=== PATIENT | female | born 1955 | race Caucasian/White ===

== ENCOUNTER → 2016-11-19 | Outpatient (CLI) | payer BC ==
[2014-05-12 17:22] VITALS: BP 178/86
--- NOTE | 2016-11-20 10:27 | RAD ---
DATE: 11/19/2016 EXAM: MAMMO PAYTON SCREENING BILATERAL HISTORY: Routine screening COMPARISON: 11/19/2015 The breast parenchyma shows scattered fibroglandular densities. Breast parenchyma level B. FINDINGS: 2-D and 3-D tomosynthesis imaging was performed in CC and MLO projections. No new or enlarging breast densities are seen. Numerous benign type calcifications are present in both breasts. No suspicious microcalcifications have developed. IMPRESSION: Stable mammograms without evidence of malignancy. BI-RADS CATEGORY: 2 BENIGN FINDING(S) RECOMMENDED FOLLOW-UP: 12M 12 MONTH FOLLOW-UP PQRS compliance statement: Patient information was entered into a reminder system with a target due date for the next mammogram. Mammography is a sensitive method for finding small breast cancers, but it does not detect them all and is not a substitute for careful clinical examination. A negative mammogram does not negate a clinically suspicious finding and should not result in delay in biopsying a clinically suspicious abnormality. "Our facility is accredited by the [employer] Mammography [employer]."
== END | disposition home or self-care (01) ==
LOC: KCIC MAMMO 10:41
PROVIDERS: ATTEND Obstetrics & Gynecology
DX: Z12.31 Encounter for screening mammogram for malignant neoplasm of breast (principal)
CPT/HCPCS: 77063; G0202; 77067

== ENCOUNTER → 2017-10-30 | Outpatient (CLI) | payer BC | END | disposition home or self-care (01) | LOC: KCIC 10:23 | DX: M47.896 Other spondylosis, lumbar region (principal); M12.88 Other specific arthropathies, not elsewhere classified, other specified site; I10 Essential (primary) hypertension; E03.9 Hypothyroidism, unspecified | CPT/HCPCS: 72100 ==

== ENCOUNTER → 2017-11-20 | Outpatient (CLI) | payer BC ==
[2014-05-12 17:22] VITALS: BP 178/86
--- NOTE | 2017-11-20 13:53 | KCIC ---
Bilateral digital screening mammograms with 3-D tomosynthesis: Reason for examination: Routine screening. Comparison is made to previous studies dated back to 01/26/2014. Bilateral mammograms in CC and oblique projections were obtained with 2-D imaging and 3-D tomosynthesis imaging on a Siemens Inspiration unit and reviewed on the workstation. Interpretation was made with the benefit of CAD. The skin and nipples show no abnormalities. No abnormal axillary lymph nodes are seen. The breast parenchyma shows scattered fatty and fibroglandular density. (Breast density: Category B.) There are no dominant masses, suspicious calcifications or architectural distortion. Benign calcifications are present. Impression: No evidence of malignancy. Recommend routine screening. BI-RAD Category 2: Benign. "Our facility is accredited by the [employer] Mammography Program." This patient's information has been entered into a reminder system for the patient to be notified with the results of her examination and a target date for the next mammogram. Electronically signed by: Estefania Morales MD (11/20/2017 1:50 PM) [id number]
== END | disposition home or self-care (01) ==
LOC: KCIC MAMMO 09:20
PROVIDERS: ATTEND Family Medicine
DX: Z12.31 Encounter for screening mammogram for malignant neoplasm of breast (principal); I10 Essential (primary) hypertension; E03.9 Hypothyroidism, unspecified
CPT/HCPCS: 77063; 77067

== ENCOUNTER → 2017-12-23 | Outpatient (CLI) | payer BC ==
[2014-05-12 17:22] VITALS: BP 178/86
--- NOTE | 2017-12-23 10:42 | KCIC ---
MRI of the lumbar spine without contrast 12/23/2017 CLINICAL HISTORY: Chronic low back pain worsening since September of this year. TECHNIQUE: Unenhanced T1-weighted and T2-weighted sagittal and axial and inversion recovery sagittal images of the lumbar spine were obtained. FINDINGS: Comparison is made to radiographs of the lumbar spine dated 10/30/2017. Very mild S-shaped curvature of the thoracolumbar spine is seen. Degenerative signal changes are seen involving the L2-3, L3-4, L4-5 and L5-S1 discs. Degenerative signal changes are seen within the marrow surrounding these discs. Loss of height of the L2-3, L3-4 and L5-S1 discs is noted. The conus medullaris is normal morphology, position, and signal characteristics. At the L1-2 disc space there is a minimal generalized disc bulge. Degenerative changes are seen involving the facet joints bilaterally. There is mild ligamentum flavum hypertrophy bilaterally. These findings do not result in significant central spinal canal or neural foraminal stenosis. At the L2-3 disc space there is a mild to moderate generalized disc bulge. This is eccentric to the left. Degenerative changes are seen involving the facet joints bilaterally. There is moderate ligamentum flavum hypertrophy bilaterally. There is prominence of the posterior epidural fat. These findings when combined result in moderate central spinal canal stenosis. Mild bilateral neural foraminal stenosis is seen. At the L3-4 disc space there is a mild to moderate generalized disc bulge. This is eccentric to the right. Degenerative changes are seen involving the facet joints bilaterally. There is moderate ligamentum flavum hypertrophy bilaterally. There is prominence of the posterior epidural fat. These findings when combined result in mild to moderate central spinal canal stenosis. Mild bilateral neural foraminal stenosis is seen. At the L4-5 disc space there is a moderate generalized disc bulge. Degenerative changes are seen involving the facet joints, bilaterally. There is moderate ligamentum flavum hypertrophy bilaterally. These findings when combined result in moderate central spinal canal stenosis. Mild bilateral neural foraminal stenosis is seen. At the L5-S1 disc space there is a mild to moderate generalized disc bulge. Degenerative changes are seen involving the facet joints, left greater than right. The disc bulge is eccentric to the left. These findings when combined do not result in significant central spinal canal stenosis. Mild left neural foraminal stenosis is seen. The right neural foramen is patent. IMPRESSION: The changes of degenerative disc disease are seen throughout the lumbar spine. These findings result in moderate central spinal canal stenosis at L2-3, mild to moderate central spinal canal stenosis at L3-4 and moderate central spinal canal stenosis at L4-5. Mild bilateral neural foraminal stenosis is seen at L2-3, L3-4 and L4-5. Mild left neural foraminal stenosis is seen at L5-S1. Electronically signed by: Louis Elise MD (12/23/2017 10:38 AM) [facility]
== END | disposition home or self-care (01) ==
LOC: KCIC MRI 08:34
PROVIDERS: ATTEND Nurse Practitioner Family
DX: M51.36 Other intervertebral disc degeneration, lumbar region (principal); M48.061 Spinal stenosis, lumbar region without neurogenic claudication; M48.07 Spinal stenosis, lumbosacral region
CPT/HCPCS: 72148

== ENCOUNTER → 2018-01-15 | Outpatient (CLI) | payer BC ==
[2014-05-12 17:22] VITALS: BP 178/86
[~2018-01-15] MED LIST: BACL10TA PO; DOXY100C14 PO; HYDR-2758 PO; HYDR25TA9 PO; IOHEXOL 180 MG/ML 10 ML VIAL. ONE; LIDOCAINE 1% PF 2 ML VIAL. ONE; LOSA100T7 PO; METH5TAB6 PO; METO-269 PO; MONT10TA9 PO; OLOP5DRO EACHEYE; RANI300T3 PO; methylPREDNISolone ACETATE 40 MG/ML VIAL. ONE; methylPREDNISolone ACETATE 80 MG/ML VIAL. ONE
--- NOTE | 2018-01-16 02:06 | PAIN ---
DATE OF SERVICE: 01/15/2018 INITIAL CONSULTATION FOR PAIN CLINIC CHIEF COMPLAINT: Low back and bilateral lower extremity pain. HISTORY OF PRESENT ILLNESS: This is a 62-year-old female who presents with acute pain in the low back and bilateral lower extremities, mostly in the posterior gluteus, posterior thighs radiating to posterior knees and calves, slightly worse on the right than the left but present bilaterally for about 4 months. The patient has had pain on and off for many years she reports but over the past 4 months, the pain has been getting worse. She has done physical therapy and chiropractic treatment, which is ongoing but neither of these have been decreasing the pain like had in the past. The patient reports it is intermittent in intensity but worse with walking and standing, changing positions; better with sitting or lying down but does awaken her from sleep occasionally. The patient reports it does not affect her bowel or bladder control but does affect her ability to walk. She is not using any assistive device to ambulate and has significant fatigability, especially in the right leg but in both legs when the pain is at its worst. The patient reports this happened after about 10-15 minutes of walking or standing still. The patient was taking hydrocodone, which does help to a moderate extent but only about 50%. Again, the patient underwent chiropractic currently as well as some recent physical therapy without significant improvement. The patient reports no loss of motor function but significant pain; describes aching, stabbing, throbbing, sometimes shooting and tingling mostly the lateral and posterior aspect of the lower extremities. The patient reports a disability rate from 0-10, 10 being the worst, is a 6-7 with family and home responsibilities, 2 with recreation and social activity, 3-4 with occupation, 0 with sexual behavior, self care or life support activities. The patient did have an MRI scan of the lumbar spine, which is showing multilevel degenerative disk disease throughout the lumbar spine with moderate central spinal canal stenosis at L2-L3; moderate central spinal stenosis at L3-L4; moderate central spinal canal stenosis at L4-L5; mild bilateral neural foraminal stenosis at L2-L3, L3-L4 and L4-L5 with mild left neural foraminal stenosis at L5-S1. PAST MEDICAL HISTORY: Significant for hearing loss, dizziness, arthritis, hypertension and hyperthyroidism. PAST SURGICAL HISTORY: Previous surgeries include bilateral knee replacements, cholecystectomy and exploratory knee surgery in the year 1999. CURRENT MEDICATIONS: Include doxycycline, hydrocodone, Toprol, Zantac, methimazole, Patanol, hydrochlorothiazide, losartan, baclofen, montelukast, Zantac and Toprol. FAMILY HISTORY: Significant for diabetes and heart disease. SOCIAL HISTORY: The patient does not smoke; drinks alcohol very rarely; is not using any illegal, illicit or recreational drugs. 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 REVIEW OF SYSTEMS: The patient's review of systems is positive for those items mentioned in history of present illness. All systems reviewed and otherwise negative. It is complete, full and well documented on the patient's chart. PHYSICAL EXAMINATION: VITAL SIGNS: Today, her blood pressure is 126/70, pulse is 63, respirations 18 and temperature 98.2 degrees Fahrenheit. Height is 5 feet 4 inches and weight is 238 pounds. GENERAL: The patient is awake, alert, oriented, appropriate and very pleasant demeanor. HEENT: Head shows normocephalic and atraumatic. Extraocular movements are intact and symmetrical. Oral cavity: Mucous membranes moist and pink. Dentition is intact. NECK: Shows anterior throat supple without palpable lymphadenopathy noted. Swallow reflex is symmetrical. CHEST: Shows normal with inspection. Breath sounds clear to auscultation bilaterally. HEART: Shows S1 and S2 clear. No murmurs auscultated. ABDOMEN: Obese, soft, nontender and nondistended. No palpable organomegaly is noted. No rebound or guarding demonstrated. BACK: Shows spine grossly in the midline. Slight exaggeration of the thoracic kyphosis and some minor flattening of the lumbar lordotic curvature. Lumbar paraspinous muscle shows symmetrical on inspection and palpation shows some mild tenderness in the low lumbar distribution only and only diffusely without radiation and without trigger points. No tenderness over the sacrum or sacroiliac regions. The patient has good rotational motion of the lumbar spine, both laterally as well as extension and flexion without significant difficulty. EXTREMITIES: The patient's lower extremity show deep tendon reflexes at 1+ in the patellar and tendo-calcaneus tendons are equal. Motor exam is strong with 5/5 dorsiflexion, extension, quadriceps and hamstring flexion. Peripheral pulses are 1+ posterior tibia. No peripheral edema is noted. No clubbing or cyanosis. Lower extremities are warm and dry to touch, equal in color and appearance. The patient's straight leg raise noted to be negative for reproduction of radicular symptoms bilaterally. Gaenslen's and Ernesto's maneuvers are negative bilaterally as well. The patient is able to stand, stand on her toes without difficulty or loss of balance, walks with a normal-appearing gait for short distance in the office without any assistive devices. The patient's skin shows warm and dry, good turgor. No edema. No sores or bruising. IMPRESSION: 1. This is a 62-year-old female with approximate 4-month history of increasing pain, lower extremities and low back in a radicular fashion is noted. 2. MRI scan as noted. 3. Obesity. 4. Hypertension. 5. Arthritis. PLAN: Options were discussed with the patient including conservative medical management, physical therapies continued and interventional techniques. She would like to pursue interventional techniques as she is currently undergoing physical therapy without significant improvement. We discussed a lumbar epidural steroid injection using description as well as anatomical models to describe the procedure. Risks were again discussed including, but not limited to bleeding, infection, possibility of epidural hematoma, subsequent neurological compromise, dural puncture headache, spinal cord and/or nerve damage, side effects of steroid medication and poor results regarding pain control. The patient understands and wished to proceed. The patient will return to the clinic in approximately 2 weeks for followup, was counseled as to return appointment, activity level and side effects to be aware of. DIAGNOSES: Lumbar radiculopathy with lumbar degenerative disk disease and lumbar spinal stenosis. PROCEDURE: Lumbar epidural steroid injection, translaminar approach at L4-L5 level using C-arm fluoroscopic guidance under sterile prep and drape using local anesthetic. MEDICATION INJECTED: A total of 120 mg Depo-Medrol plus 10 mL of preservative-free normal saline and 2 mL of Isovue for contrast. CONDITION AT DISCHARGE: Stable. The patient tolerated the procedure well and had no complications. ARACELY HOLM MD DR: SOTO/emile JOB#: [id number] / [id number] DAVID Marshall MD
== END | disposition home or self-care (01) ==
LOC: PNCL 09:27
PROVIDERS: ATTEND Anesthesiology
DX: M51.16 Intervertebral disc disorders with radiculopathy, lumbar region (principal); I10 Essential (primary) hypertension; M19.90 Unspecified osteoarthritis, unspecified site; E66.9 Obesity, unspecified; M48.07 Spinal stenosis, lumbosacral region; Z79.899 Other long term (current) drug therapy; Z98.890 Other specified postprocedural states
CPT/HCPCS: 62323; J1030; J1040; Q9965

== ENCOUNTER → 2018-02-04 | Outpatient (CLI) | payer BC ==
[2014-05-12 17:22] VITALS: BP 178/86
[~2018-02-04] MED LIST changes: -LIDOCAINE 1% PF 2 ML VIAL. ONE
--- NOTE | 2018-02-04 20:58 | PAIN ---
DATE OF SERVICE: 02/04/2018 PROGRESS NOTE FOR PAIN CLINIC DIAGNOSES: Lumbar radiculopathy with lumbar degenerative disk disease and lumbar spinal stenosis. HISTORY OF PRESENT ILLNESS: The patient is a 62-year-old female who returns for followup status post lumbar epidural steroid injection x 1. The patient reports about 80% improvement until the last 2 days or so and the pain is beginning to return in the low back, bilateral lower extremities, mostly in posterior gluteus, posterior thighs and across the low back. The patient reports otherwise she has been doing very well as increasing her activity with greater distance walking, able to return to household activities with greater ease and sleeping better. The patient reports it does not awaken her from sleep any further like it was previously. The patient reports the pain is a 3 on a scale of 10 at its worst, 2 on average, 1 at its least and is a 2 today. The patient reports it is aching, sharp, dull and some combination of these in the low back and legs and gluteus as well. The patient reports some hot flashes since her last injection, but no new motor or sensory deficits and no new bowel or bladder incontinence or other complaints. PHYSICAL EXAMINATION: VITAL SIGNS: The patient's blood pressure 124/42, pulse 60, respirations 16 and temperature 97.9 degrees Fahrenheit. Weight is 242 pounds. GENERAL: The patient is awake, alert, oriented, appropriate and very pleasant demeanor. HEENT: Head shows normocephalic and atraumatic. Extraocular muscles are intact and symmetrical. Oral cavity: Mucous membranes moist and pink. Dentition is intact. NECK: Shows anterior throat supple without palpable lymphadenopathy noted. Swallow reflex symmetrical. CHEST: Shows normal with inspection. Breath sounds clear to auscultation bilaterally. HEART: Shows S1 and S2 clear. No murmurs auscultated. ABDOMEN: Soft, nontender and nondistended. No palpable organomegaly is noted. No rebound or guarding demonstrated. BACK: Shows spine grossly in the midline, slight exaggerated thoracic kyphosis and some minor flattening of the lumbar lordotic curvature. Lumbar paraspinous muscle shows symmetrical on inspection, on palpation shows some moderate tenderness but only diffusely in the middle and lower distribution of the paraspinous muscles bilaterally without radiation, without atrophy, hypertrophy or trigger points. No radiation of pain. No difficulty with rotation both laterally as well as extension and flexion. EXTREMITIES: Lower extremities show deep tendon reflexes at 1+/4 in the patellar and tendo-calcaneus tendons. Motor exam is strong with 5/5 dorsiflexion, extension, quadriceps and hamstring flexion and symmetrical. Peripheral pulses are 1+ posterior tibial. No peripheral edema is noted bilaterally. Options were discussed with the patient. The patient's old chart was reviewed as well as her current medication regimen updated. Current review of systems updated today as well. We will proceed with a second lumbar epidural steroid injection today with fluoroscopic guidance. Risks were again discussed including, but not limited to bleeding, infection, possibility of epidural hematoma, subsequent neurological compromise, dural puncture, headaches, spinal cord and/or nerve damage, side effects of steroid medication and poor results regarding pain control. The patient understands and wished to proceed. The patient will return to the clinic in approximately 2 weeks for followup, was counseled as to return appointment, activity level and side effects to be aware of. DIAGNOSES: Lumbar radiculopathy with lumbar degenerative disk disease and lumbar spinal stenosis. PROCEDURE: Lumbar epidural steroid injection, translaminar approach at the L4-L5 level using C-arm fluoroscopic guidance under sterile prep and drape using local anesthetic. MEDICATION INJECTED: A total of 120 mg Depo-Medrol plus 10 mL of preservative-free normal saline and 2 mL of Isovue for contrast. CONDITION AT DISCHARGE: Stable. The patient tolerated the procedure well and had no complications. ARACELY HOLM MD DR: SOTO/emile JOB#: [id number] / [id number]
== END | disposition home or self-care (01) ==
LOC: PNCL 13:55
PROVIDERS: ATTEND Anesthesiology
DX: M51.16 Intervertebral disc disorders with radiculopathy, lumbar region (principal); M48.061 Spinal stenosis, lumbar region without neurogenic claudication; Z88.1 Allergy status to other antibiotic agents; Z88.8 Allergy status to other drugs, medicaments and biological substances
CPT/HCPCS: 62323; J1030; J1040; Q9965

== ENCOUNTER → 2018-02-23 | Outpatient (CLI) | payer BC ==
[2014-05-12 17:22] VITALS: BP 178/86
[~2018-02-23] MED LIST changes: +HYDR-2145 PO; -HYDR-2758 PO; +HYDR-2761 PO; -HYDR25TA9 PO
--- NOTE | 2018-02-23 19:28 | PAIN ---
DATE OF SERVICE: 02/23/2018 PROGRESS NOTE FOR PAIN CLINIC DIAGNOSES: 1. Lumbar radiculopathy with lumbar degenerative disk disease. 2. Lumbar spinal stenosis. HISTORY OF PRESENT ILLNESS: The patient is a 62-year-old female who returns for followup status post lumbar epidural steroid injection x 2. The patient returns reporting good improvement after the first injection, about 80%, but the second injection was about the same. The patient reports no significant improvement above that; still pain in the low back, bilateral lower extremities, mostly in the posterior gluteus, posterior thigh, lateral thighs, anterior thighs, medial lower legs and is constant. The patient reports it can be severe, unbearable at times, mostly with walking, standing, changing positions; better with sitting or lying down; does not awaken her from sleep. Reports it is 4 on a scale of 10 as worse, 2 on average, 1 at its least and is a 2 today. The patient reports no new motor or sensory deficits, no new bowel or bladder incontinence or other complaints. The patient describes the pain as aching and dull across the low back, shooting and more sharp and severe in the leg. PHYSICAL EXAMINATION: VITAL SIGNS: The patient's blood pressure is 123/74, pulse 70, respirations 18, temperature is 97.4 degrees Fahrenheit, weight is 240 pounds. GENERAL: The patient is awake, alert, oriented, appropriate, very pleasant demeanor. HEENT: Head is normocephalic, atraumatic. Extraocular movements are intact and symmetrical. Oral cavity: Mucous membranes moist and pink. Dentition is intact. NECK: Shows anterior throat supple without palpable lymphadenopathy noted. Swallow reflex symmetrical. CHEST: Shows normal on inspection. Breath sounds clear to auscultation bilaterally. HEART: Shows S1, S2 clear. No murmurs auscultated. ABDOMEN: Soft, nontender, nondistended. No palpable organomegaly is noted. BACK: Shows spine grossly in the midline. Normal-appearing thoracic kyphosis, lumbar lordotic curvature. Lumbar paraspinous muscle shows symmetrical on inspection; on palpation, it shows some moderate tenderness, but only diffusely without significant radiation. EXTREMITIES: The patient's lower extremities show deep tendon reflexes 1+ in the patellar and tendo calcaneus tendons are equal. Motor exam is strong with 5/5 dorsiflexion, extension and symmetrical. Peripheral pulses are 1+ posterior tibia. No peripheral edema is noted, though other abnormalities. Options were discussed with the patient. The patient's old chart was reviewed as well as her current medication regimen updated. Current review of systems updated today as well. We will proceed with a third in the series of lumbar epidural steroid injection today with fluoroscopic guidance. Risks were again discussed including, but not limited to bleeding, infection, possibility of epidural hematoma and subsequent neurologic compromise, dural puncture, headaches, spinal cord and/or nerve damage, side effects of steroid medication and poor results regarding pain control. The patient understands and wished to proceed. She will return to clinic in approximately 2 weeks for followup, was counseled on return appointment, activity level and side effects to be aware of. DIAGNOSES: 1. Lumbar radiculopathy with lumbar spinal stenosis. 2. Lumbar degenerative disk disease. PROCEDURE: Lumbar epidural steroid injection, translaminar approach at the L4-L5 level using C-arm fluoroscopic guidance under sterile prep and drape using local anesthetic. MEDICATION INJECTED: A total of 120 mg Depo-Medrol plus 10 mL of preservative-free normal saline and 2 mL of Isovue for contrast. CONDITION AT DISCHARGE: Stable. The patient tolerated the procedure well, had no complications. ARACELY HOLM MD DR: SOTO/nts JOB#: [id number] / [id number]
== END | disposition home or self-care (01) ==
LOC: PNCL 13:51
PROVIDERS: ATTEND Anesthesiology
DX: M51.16 Intervertebral disc disorders with radiculopathy, lumbar region (principal); M48.061 Spinal stenosis, lumbar region without neurogenic claudication; Z88.1 Allergy status to other antibiotic agents; Z88.8 Allergy status to other drugs, medicaments and biological substances
CPT/HCPCS: 62323; J1030; J1040; Q9965

== ENCOUNTER → 2019-01-25 | Outpatient (CLI) | payer BC ==
[2014-05-12 17:22] VITALS: BP 178/86
[~2019-01-25] MED LIST changes: +CYCL10TA2 PO; +LOSA100T14 PO; -LOSA100T7 PO; +MONT10TA49 PO; -MONT10TA9 PO; +TELM40TA PO
--- NOTE | 2019-01-25 21:15 | PAIN ---
DATE OF SERVICE: 01/25/2019 PROGRESS NOTE FOR PAIN CLINIC DIAGNOSES: Lumbar radiculopathy with lumbar degenerative disk disease and lumbar spinal stenosis. HISTORY OF PRESENT ILLNESS: The patient is a 63-year-old female who returns for followup status post lumbar epidural steroid injections x 3, last seen 01/2018. The patient did very well with the injections about a 50% improvement overall. Pain is returning over the past 2-3 months. She reports it is in the low back, into the bilateral lower extremities, slightly more on the right than the left, but present with walking, standing, changing positions. The patient describes the pain as sharp and tight, severe across the low back into the posterior gluteus, lateral thighs, lateral anterior thighs and medial thighs. The patient reports it is an 8 on a scale of 10 at its worst over the past week, 5 on average and a 2-3 at its least and is a 5 today. The patient reports no new motor or sensory deficits, no new bowel or bladder incontinence or other complaints. PHYSICAL EXAMINATION: VITAL SIGNS: The patient's blood pressure is 123/68, pulse 57, respirations 18, temperature 98.3 degrees Fahrenheit, height is 5 feet 4 inches, weight is 238 pounds. GENERAL: The patient is awake, alert, oriented, appropriate, very pleasant demeanor. HEENT: Head shows normocephalic, atraumatic. Extraocular movements are intact and symmetrical. Oral cavity: Mucous membranes moist and pink. Dentition is intact. NECK: Shows anterior throat supple without palpable lymphadenopathy noted. Swallow reflex symmetrical. CHEST: Shows normal on inspection. Breath sounds clear bilaterally. HEART: Shows S1, S2 clear. No murmurs auscultated. ABDOMEN: Soft, nontender, nondistended. No palpable organomegaly is noted. No rebound or guarding demonstrated. BACK: Shows spine grossly in the midline. Normal appearing thoracic kyphosis and lumbar lordotic curvature. Lumbar paraspinous muscle shows symmetrical on inspection, on palpation shows some moderate tenderness diffusely without significant radiation. EXTREMITIES: The patient's lower extremities show deep tendon reflexes are 1+ in the patellar and tendo calcaneus tendons are equal. Motor exam is strong with 5/5 dorsiflexion, extension, quadriceps and hamstring flexion. Peripheral pulses are 1+ posterior tibia. No peripheral edema is noted bilaterally. Options were discussed with the patient. The patient's old chart was reviewed as her current medication regimen updated. Current review of systems updated today as well. We will proceed with the first in the series of lumbar epidural steroid injection today with fluoroscopic guidance. Risks were again discussed including, but not limited to bleeding, infection, possibility of epidural hematoma, subsequent neurological compromise, dural puncture, headaches, spinal cord and/or nerve damage, side effects of steroid medication and poor results regarding pain control. The patient understands and wished to proceed. The patient will return to clinic in approximately 2 weeks for followup. She was counseled as to return appointment, activity level and side effects to be aware of. DIAGNOSIS: Lumbar radiculopathy with lumbar degenerative disk disease, lumbar spinal stenosis. PROCEDURE: Lumbar epidural steroid injection, translaminar approach at L4-L5 level using C-arm fluoroscopic guidance under sterile prep and drape using local anesthetic. MEDICATION INJECTED: A total of 120 mg Depo-Medrol plus 10 mL of preservative-free normal saline and 2 mL of contrast. CONDITION AT DISCHARGE: Stable. The patient tolerated procedure well, had no complications. ARACELY HOLM MD DR: SOTO/emile JOB#: [id number] / [id number]
== END ==
LOC: PNCL 14:29
PROVIDERS: ATTEND Anesthesiology
DX: M51.16 Intervertebral disc disorders with radiculopathy, lumbar region (principal); M48.061 Spinal stenosis, lumbar region without neurogenic claudication
CPT/HCPCS: 62323; J1030; J1040; Q9965

== ENCOUNTER → 2019-02-14 | Outpatient (CLI) | payer BC ==
[2014-05-12 17:22] VITALS: BP 178/86
--- NOTE | 2019-02-14 20:52 | PAIN ---
DATE OF SERVICE: 02/14/2019 PROGRESS NOTE FOR PAIN CLINIC DIAGNOSES: Lumbar radiculopathy with lumbar degenerative disk disease, lumbar spinal stenosis. HISTORY OF PRESENT ILLNESS: The patient is a 63-year-old female who returns for followup status post lumbar epidural steroid injection x 1. The patient reports about 30% improvement overall in the low back, bilateral lower extremities, still some pain in the posterior gluteus, lateral thighs, anterior thighs, posterior thighs and medial lower leg. The patient reports it is worse with walking, standing, changing positions, essentially right equal to left at this time. The patient describes the pain as a sharp pain in the back, tight in the back and there is some shooting pain in the lower extremities. The patient reports it is a 4-5 on a scale of 10 on average, 5 at its worse and a 3 at its least, and is a 3 today. The patient reports no new motor or sensory deficits. Initially, she was increasing her distance walking, doing work activities, household activities and increasing with some activities not others. The patient reports no new motor or sensory deficits, no new bowel or bladder incontinence or other complaints. PHYSICAL EXAMINATION: VITAL SIGNS: The patient's blood pressure is 121/50, pulse 57, respirations 18, temperature 98.0 degrees Fahrenheit, height is 5 feet 6 inches, weight is 240 pounds. GENERAL: The patient is awake, alert, oriented, appropriate, very pleasant demeanor. HEENT: Shows normocephalic, atraumatic. Extraocular movements are intact and symmetrical. Oral cavity: Mucous membranes moist and pink. Dentition is intact. NECK: Shows anterior throat supple without palpable lymphadenopathy noted. Swallow reflex symmetrical. CHEST: Shows normal on inspection. Breath sounds clear bilaterally. HEART: Shows S1, S2 clear. No murmurs are auscultated. ABDOMEN: Obese, soft, nontender, nondistended. No palpable organomegaly is noted. No rebound or guarding demonstrated. BACK: Shows spine grossly in the midline. Normal appearing thoracic kyphosis and minor flattening of lumbar lordotic curvature. Lumbar paraspinous muscle shows symmetrical on inspection, on palpation shows some moderate tenderness diffusely, but only diffusely bilaterally without significant radiation. The patient has good rotational motion of lumbar spine, both laterally as well as extension and flexion without difficulty. EXTREMITIES: The patient's lower extremities show deep tendon reflexes 1+ in the patellar and tendo calcaneus tendons. Motor exam is strong with 5/5 dorsiflexion, extension and equal bilaterally. Peripheral pulses are 1+. No peripheral edema is noted bilaterally. Options were discussed with the patient. The patient's old chart was reviewed as her current medication regimen updated. Current review of systems updated today as well. We will proceed with a second in the series of lumbar epidural steroid injection today with fluoroscopic guidance. Risks were again discussed including, but not limited to bleeding, infection, possibility of epidural hematoma, subsequent neurological compromise, dural puncture, headaches, spinal cord and/or nerve damage, side effects of steroid medication and poor results regarding pain control. The patient understands and wished to proceed. The patient will return to clinic in approximately 2 weeks for followup. She was counseled on return appointment, activity level and side effects to be aware of. DIAGNOSIS: Lumbar radiculopathy with lumbar degenerative disk disease, lumbar spinal stenosis. PROCEDURE: Lumbar epidural steroid injection, translaminar approach L4-L5 level using C-arm fluoroscopic guidance under sterile prep and drape using local anesthetic. MEDICATION INJECTED: A total of 120 mg Depo-Medrol plus 10 mL of preservative-free normal saline and 2 mL of contrast. CONDITION AT DISCHARGE: Stable. The patient tolerated the procedure well, had no complications. ARACELY HOLM MD DR: SOTO/emile JOB#: [id number] / [id number]
== END ==
LOC: PNCL 14:35
PROVIDERS: ATTEND Anesthesiology
DX: M51.16 Intervertebral disc disorders with radiculopathy, lumbar region (principal); M48.061 Spinal stenosis, lumbar region without neurogenic claudication
CPT/HCPCS: 62323; J1030; J1040; Q9965

== ENCOUNTER → 2019-03-17 | Outpatient (CLI) | payer BC ==
[2014-05-12 17:22] VITALS: BP 178/86
--- NOTE | 2019-03-17 23:05 | PAIN ---
DATE OF SERVICE: 03/17/2019 PROGRESS NOTE FOR PAIN CLINIC DIAGNOSES: Lumbar radiculopathy with lumbar degenerative disk disease and lumbar spinal stenosis. HISTORY OF PRESENT ILLNESS: The patient is a 64-year-old female, who returns for followup status post lumbar epidural steroid injections x 2, most recently 02/14/2019. The patient did very well with this about 50% improvement overall. Pain in the low back and bilateral lower extremities. The patient reports she has had increased stress at work recently, had been sitting for prolonged periods and greater difficulty with pain in her back, returning now over the past week or so. The patient reports the pain is across the low back, in the bilateral lower extremities, mostly in the posterior gluteus, posterolateral thighs, also lateral anterior thighs at times, but again mostly across the back. The patient reports it is sharp alternating with tight across the back and some shooting pain in the legs. The patient reports it is a 5 on a scale of 10 at its worst over the past week, anywhere from a 3-5 on average and a 2 at its least and is a 5 today. The patient reports no new motor or sensory deficits. No new bowel or bladder incontinence or other complaints. Sleeps well at night, does not awaken her from sleep. PHYSICAL EXAMINATION: VITAL SIGNS: The patient's blood pressure 132/78, pulse 90, respirations 18, temperature is 98.0 degrees Fahrenheit, height is 5 feet 4 inches, weight is 240 pounds. GENERAL: The patient is awake, alert, oriented, appropriate, very pleasant demeanor. HEENT: Shows normocephalic, atraumatic. Extraocular movements are intact and symmetrical. Oral cavity shows mucous membranes moist and pink. Dentition is intact. NECK: Shows anterior throat supple without palpable lymphadenopathy noted. Swallow reflex symmetrical. CHEST: Shows normal on inspection. Breath sounds are clear bilaterally. HEART: Shows S1, S2 clear. No murmurs auscultated. ABDOMEN: Soft, nontender, nondistended. No palpable organomegaly is noted. No rebound or guarding demonstrated. BACK: Shows spine grossly in the midline. Normal-appearing thoracic kyphosis and lumbar lordotic curvature. Lumbar paraspinous muscle shows symmetrical on inspection, on palpation shows some moderate tenderness diffusely bilaterally going diffusely without radiation. The patient has good rotational motion of lumbar spine, both laterally as well as extension and flexion without significant increase in pain. EXTREMITIES: Lower extremities show deep tendon reflexes at 1+ in the patellar and tendo-calcaneus tendons. Motor exam is 5/5 with dorsiflexion, extension, quadriceps and hamstring flexion equal. Peripheral pulses are 1+ posterior tibia. No peripheral edema bilaterally. Options were discussed with the patient. The patient's old chart was reviewed as her current medication regimen updated. Current review of systems updated today as well. We will proceed with a lumbar epidural steroid injection today, third in the series with fluoroscopic guidance. Risks were again discussed, including but not limited to bleeding, infection, possibility of epidural hematoma, subsequent neurological compromise, dural puncture, headaches, spinal cord and/or nerve damage, side effects of steroid medication and poor results regarding pain control. The patient understands and wished to proceed. The patient will return to clinic in approximately 2 weeks for followup. She was counseled on return appointment with activity level and side effects to be aware of. DIAGNOSES: Lumbar radiculopathy with lumbar degenerative disk disease and lumbar spinal stenosis. PROCEDURE: Lumbar epidural steroid injection, translaminar approach at L4-L5 level using C-arm fluoroscopic guidance under sterile prep and drape using local anesthetic. MEDICATION INJECTED: A total of 120 mg Depo-Medrol plus 10 mL of preservative-free normal saline and 2 mL of contrast. CONDITION AT DISCHARGE: Stable. The patient tolerated the procedure well, had no complications. ARACELY HOLM MD DR: SOTO/emile JOB#: [id number] / [id number]
== END ==
LOC: PNCL 14:35
PROVIDERS: ATTEND Anesthesiology
DX: M51.16 Intervertebral disc disorders with radiculopathy, lumbar region (principal); M48.061 Spinal stenosis, lumbar region without neurogenic claudication
CPT/HCPCS: 62323; J1030; J1040; Q9965

== ENCOUNTER → 2019-09-29 | Outpatient (CLI) | payer BC ==
[2014-05-12 17:22] VITALS: BP 178/86
[~2019-09-29] MED LIST changes: -IOHEXOL 180 MG/ML 10 ML VIAL. ONE; -methylPREDNISolone ACETATE 40 MG/ML VIAL. ONE; -methylPREDNISolone ACETATE 80 MG/ML VIAL. ONE
--- NOTE | 2019-09-29 18:47 | KCIC ---
Bilateral digital screening mammograms with 3-D tomosynthesis: Reason for examination: Routine screening. Comparison is made to previous studies dated 11/20/2017 at 11/19/2016. Bilateral mammograms in CC and oblique projections were obtained with 2-D imaging and 3-D tomosynthesis imaging on a Siemens Inspiration unit and reviewed on the workstation. Interpretation was made with the benefit of CAD. The skin and nipples show no abnormalities. No abnormal axillary lymph nodes are seen. The breast parenchyma shows scattered fatty and fibroglandular density. (Breast density: Category B.) There are no dominant masses, suspicious calcifications or architectural distortion. Benign calcifications are present. Impression: No evidence of malignancy. Recommend routine screening. BI-RAD Category 2: Benign. "Our facility is accredited by the [employer] Mammography Program." This patient's information has been entered into a reminder system for the patient to be notified with the results of her examination and a target date for the next mammogram. Electronically signed by: Estefania Morales MD (09/29/2019 6:44 PM) [id number]
== END | disposition home or self-care (01) ==
LOC: KCIC MAMMO 12:21
PROVIDERS: ATTEND Obstetrics & Gynecology
DX: Z12.31 Encounter for screening mammogram for malignant neoplasm of breast (principal)
CPT/HCPCS: 77063; 77067